=== PATIENT | female | born 1985 | race Caucasian/White ===

== ENCOUNTER 2018-08-28 06:40 | Day surgery (SDC) | payer MEDICAID ==
[2018-08-25 12:39] LABS: BASOPHILS # (AUTO) 0.1 X10'3 (0-0.2); BASOPHILS % (AUTO) 0.9 % (0-1); EOSINOPHILS # (AUTO) 0.1 X10'3 (0-0.9); EOSINOPHILS % (AUTO) 0.8 % (0-6); LYMPHOCYTES % (AUTO) 26.6 % (21-51); MEAN CORPUSCULAR HEMOGLOBIN 29.1 PG (27.0-31.0); MEAN CORPUSCULAR HGB CONC 33.6 g/dL (33.0-36.5); MEAN CORPUSCULAR VOLUME 86.4 FL (78-98); MEAN PLATELET VOLUME 8.2 FL (7.4-10.4); MONOCYTES # (AUTO) 0.5 X10'3 (0-0.9); MONOCYTES % (AUTO) 6.2 % (2-12); NEUTROPHILS % (AUTO) 65.5 % (42-75); PRE OP HEMATOCRIT 39.6 % (35.0-45.0); PRE OP HEMOGLOBIN 13.3 g/dL (12.0-16.0); PRE OP PLATELET COUNT 448 X10'3 (140-440); RED BLOOD COUNT 4.58 X10'6 (4.20-5.60); RED CELL DISTRIBUTION WIDTH 13.8 % (11.5-14.5)
[2018-08-25 12:48] LABS: ALBUMIN 3.2 G/DL (3.4-5.0); ALBUMIN/GLOBULIN RATIO 0.7 (1.1-1.5); ALKALINE PHOSPHATASE 60 IU/L (46-116); BLOOD UREA NITROGEN 7 MG/DL (7-18); BUN/CREATININE RATIO 8.8 (6.6-38.0); CALCIUM 8.8 MG/DL (8.5-10.1); CHLORIDE 104 MMOL/L (99-107); PRE OP ALT 18 U/L (30-65); PRE OP ANION GAP 7 (8-16); PRE OP AST 11 U/L (10-37); PRE OP BILIRUB, TOTAL 0.1 MG/DL (0.0-1.0); PRE OP GLUCOSE 88 MG/DL (70-104); PRE OP POTASSIUM 3.7 MMOL/L (3.4-5.1); PRE OP SODIUM 140 MMOL/L (135-145); TOTAL PROTEIN 7.5 G/DL (6.4-8.2); eGFR 82 ML/MIN
[2018-08-25 12:54] LABS: CLARITY,URINE CLOUDY (Clear); COLOR,URINE YELLOW (Yellow); GLUCOSE, URINE NEGATIVE (Neg); KETONES,URINE TRACE mg/dl (Neg); LEUKOCYTE ESTERASE ,URINE NEGATIVE (Neg); NITRITES, URINE NEGATIVE (Neg); OCCULT BLOOD,URINE NEGATIVE (Neg); PROTEIN,URINE TRACE mg/dl (Neg); UROBILINOGEN,URINE 0.2 E.U/dL (0.2-1.0)
[2018-08-25 13:03] LABS: HCG SERUM QL NEGATIVE
[2018-08-25 13:14] LABS: UA COLLECTION TYPE CLN CATCH MIDSTREAM
[2018-08-25 13:18] LABS: BACTERIA,URINE FEW /HPF (Neg); MUCUS STRANDS MANY /LPF (Neg); RBC,URINE 0-2 /HPF (0-2); SQUAMOUS EPITHELIAL CELL,UR MANY /LPF (FEW); WBC,URINE 0-4 /HPF (0-4)
[~2018-08-28] VITALS: Ht 162.6 cm; Wt 67.8 kg
[2018-08-28] VITALS (19 sets, daily range): BP systolic 115–141; BP diastolic 72–90
[~2018-08-28 06:40] MED LIST: CETI-102 PO; MONT10TA24 PO; NORG1TAB12 PO; cefotetan 2gm/isosm dext IVPB 50 ML IV ONE; famotidine 20mg tablet PO ONE; ringers solution, lacted 1,000 ML IV SCH
[2018-08-28] MEDS ORDERED: LIDOcaine 1% (10mg/ml) 2ml vial ONE (07:25)
[2018-08-28] MEDS ORDERED: ringers solution, lacted 1,000 ML IV SCH (07:44)
[2018-08-28] MEDS ORDERED: proCHLORperazine 10 MG/2 ml inj IV PRN (07:45)
[2018-08-28] MEDS ORDERED: meperidine/PF 25mg/ml syringe IV PRN ×3 (07:45)
[2018-08-28] MEDS ORDERED: morphine 4 MG/ML inj SYRINge IV PRN ×2 (07:45)
[2018-08-28] MEDS ORDERED: ondansetron/PF 4mg/2ml inj IV PRN ×2 (07:45→10:20)
[2018-08-28] MEDS ORDERED: clindamycin phosphate 40gm vag cream ONE (08:30)
[2018-08-28] MEDS ORDERED: BUPIVAcaine/PF 2.5mg/ml (0.25%) 10ml vial ONE ×2 (08:31→08:33)
[2018-08-28] MEDS ORDERED: neomy sulf/polymyxin B sulf. GU irrigation 1ml amp IR ONE (08:31)
[2018-08-28] MEDS ORDERED: epiNEPHrine 1 mg/ml inj ONE (08:32)
[2018-08-28] MEDS ORDERED: vasoPRESSIN 20 units/ml inj. ONE (08:32)
[2018-08-28] MEDS ORDERED: midazolam 2 mg/2 ml injection ONE (08:42)
[2018-08-28] MEDS ORDERED: fentaNYL /PF 50mcg/ml 5ml ampule ONE (08:42)
[2018-08-28] MEDS ORDERED: rocuronium 10mg/ml inj IV ONE (08:43)
[2018-08-28] MEDS ORDERED: propofol inj 20 ML IV ONE (08:43)
[2018-08-28] MEDS ORDERED: LIDOcaine 2% (20mg/ml) 5ml vial ONE (08:43)
[2018-08-28] MEDS ORDERED: dexamethasone sod phosphate 10mg/ml inj ONE (08:52)
[2018-08-28] MEDS ORDERED: glycopyrrolate 0.2mg/ml inj ONE (08:52)
[2018-08-28] MEDS ORDERED: neostigmine methylsulfate 1 MG/ML 10ml vial ONE (08:52)
[2018-08-28] MEDS ORDERED: sevoflurane 250ml liquid IH ONE (08:52)
[2018-08-28] MEDS ORDERED: ondansetron/PF 4mg/2ml inj ONE (10:15)
[2018-08-28] MEDS ORDERED: ketorolac trometh. 30mg/ml inj. ONE (10:15)
[2018-08-28] MEDS ORDERED: ketorolac trometh. 30mg/ml inj. IV PRN (10:20)
[2018-08-28] MEDS ORDERED: normal saline 500ml IV soln 500 ML IV PRN (10:20)
[2018-08-28] MEDS ORDERED: temazepam 15mg capsule PO PRN (10:20)
[2018-08-28] MEDS ORDERED: LORazepam 2 mg/ml vial IV PRN (10:20)
[2018-08-28] MEDS ORDERED: magnesium hydroxide 30ml (MOM) UD suspension PO PRN (10:20)
[2018-08-28] MEDS ORDERED: HYDROcodone/acetaminophen 10/325mg tab PO PRN (10:20)
[2018-08-28] MEDS ORDERED: diphenhydrAMINE 50 mg/ml inj IV PRN (10:20)
[2018-08-28] MEDS ORDERED: metoclopramide 5 mg/ml inj IV PRN (10:20)
--- NOTE | 2018-08-28 10:34 | NUR ---
Received from OR via BED, accompanied by Anesthesiologist DR MCDONOUGH and report given by Anesthesiologist. PT AWAKE, DENIES PAIN, 2 SMALL LAP SITES BILAT GROIN SITES W/DERMABOND CDI. JAMILA PAD IN PLACE CDI. Addendum: 08/28/18 at 1056 by Anupama Russ RN Amended: Links added.
--- NOTE | 2018-08-28 11:50 | NUR ---
I have received report from JULIAN Altman and had the opportunity to ask questions and assume patient care.
--- NOTE | 2018-08-28 12:04 | NUR ---
Report called to receiving nurse. Transferred via BED, 1 BAG Belongings SENT W/PT TO ROOM 350A, RECEIVNG RN AND AIDE AT BEDSIDE TO RECEIVE PT, BLL, CALL LIGHT GIVEN, SIDE RAILS UP X 2, PTS MOTHER AT BEDSIDE. Special Issues communicated to receiving nurse. YES. Addendum: 08/28/18 at 1213 by Anupama Russ RN Amended: Links added.
[2018-08-28] MEDS: simethicone 80mg chew tab PO SCH ×2 (13:34→21:06)
[2018-08-28] MEDS: ringers solution, lacted 1,000 ML IV SCH ×2 (13:44→21:03)
--- NOTE | 2018-08-28 18:53 | NUR ---
Problems reprioritized. Patient report given, questions answered & plan of care reviewed with JULIAN Jiang.
[2018-08-28] MEDS: docusate sod 100mg capsule PO SCH (21:06)
[2018-08-28] MEDS: HYDROcodone/acetaminophen 10/325mg tab PO PRN (21:07)
[2018-08-29] VITALS: BP 115/74
[2018-08-29] MEDS: ringers solution, lacted 1,000 ML IV SCH ×2 (02:20→10:20)
[2018-08-29] MEDS: HYDROcodone/acetaminophen 10/325mg tab PO PRN ×2 (03:18→10:08)
--- NOTE | 2018-08-29 03:20 | NUR ---
Ibanez Catheter has been causing pt an increase in pain and irritation, she would like it out. Pt has been up and walking, passing gas and tolerating a regular diet. Ibanez was taken out at this time with 7ml taken out of f/c balloon, Pt tolerated d/c well and stated that it feels much better without it. Addendum: 08/29/18 at 0354 by Deidre Aguirre RN Amended: Links added.
[2018-08-29 05:35] LABS: ALBUMIN 2.8 G/DL (3.4-5.0); ANION GAP 8 (8-16); BLOOD UREA NITROGEN 6 MG/DL (7-18); BUN/CREATININE RATIO 6.3 (6.6-38.0); CALCIUM 8.7 MG/DL (8.5-10.1); CHLORIDE 104 MMOL/L (99-107); CREATININE 0.95 MG/DL (0.40-0.90); GLUCOSE 144 MG/DL (70-104); POTASSIUM 3.4 MMOL/L (3.5-5.1); SODIUM 139 MMOL/L (135-145); TOTAL CARBON DIOXIDE 27.4 MMOL/L (24-32); eGFR 67 ML/MIN
[2018-08-29 05:52] LABS: BASOPHILS # (AUTO) 0.1 X10'3 (0-0.2); BASOPHILS % (AUTO) 0.4 % (0-1); EOSINOPHILS % (AUTO) 0 % (0-6); HEMATOCRIT 36.3 % (35.0-45.0); HEMOGLOBIN 12.1 g/dl (12.0-16.0); LYMPHOCYTES % (AUTO) 4.9 % (21-51); MEAN CORPUSCULAR HEMOGLOBIN 28.7 PG (27.0-31.0); MEAN CORPUSCULAR HGB CONC 33.2 g/dL (33.0-36.5); MEAN CORPUSCULAR VOLUME 86.6 FL (78-98); MEAN PLATELET VOLUME 8.3 FL (7.4-10.4); MONOCYTES # (AUTO) 0.7 X10'3 (0-0.9); MONOCYTES % (AUTO) 3.3 % (2-12); NEUTROPHILS # (AUTO) 18.7 X10'3 (1.8-7.7); NEUTROPHILS % (AUTO) 91.4 % (42-75); PLATELET COUNT 417 X10'3 (140-440); RED BLOOD COUNT 4.19 X10'6 (4.20-5.60); RED CELL DISTRIBUTION WIDTH 13.9 % (11.5-14.5); WHITE BLOOD COUNT 20.4 X10'3 (4.5-11.0)
--- NOTE | 2018-08-29 06:08 | NUR ---
Patient in room [facility]. I have received report from JULIAN Jiang and had the opportunity to ask questions and assume patient care.
--- NOTE | 2018-08-29 06:22 | NUR ---
Problems reprioritized. Patient report given, questions answered & plan of care reviewed with Kyleigh JORDAN. Addendum: 08/29/18 at 0622 by Deidre Aguirre RN Amended: Links added.
[2018-08-29 07:30] VITALS: BP 125/75
[2018-08-29] MEDS ORDERED: enoxaparin 40mg/0.4ml syringe SQ SCH (08:00)
[2018-08-29] MEDS: simethicone 80mg chew tab PO SCH ×2 (10:08→13:35)
[2018-08-29] MEDS: docusate sod 100mg capsule PO SCH (10:08)
[2018-08-29 12:00] VITALS: BP 126/79
--- NOTE | 2018-08-29 14:00 | NUR ---
Pt discharged to home with all belongings in private vehicle. Discharge instructions reviewed, medications reviewed, and pt instructed to follow up with scheduled post-op appointment. IV DC'd, cannula intact.
== END 2018-08-29 13:46 | disposition home or self-care (01) ==
LOC: PAS 06:40 → SUR 3N 12:06 → PAS 08-29 13:46
PROVIDERS: ATTEND Obstetrics & Gynecology Obstetrics
DX: D25.9 Leiomyoma of uterus, unspecified (principal); K66.8 Other specified disorders of peritoneum; M19.90 Unspecified osteoarthritis, unspecified site; G43.909 Migraine, unspecified, not intractable, without status migrainosus; Z79.899 Other long term (current) drug therapy; Z88.6 Allergy status to analgesic agent; Z87.891 Personal history of nicotine dependence
CPT/HCPCS: 36415; 58552; 58662; 71046; 80048; 80053; 81001; 82948; 84703; 85025; 86885; 86900; 86901; 93005; J0171; J1100; J1885; J2001; J2175; J2250; J2405; J2704; J2710; J3010; J3490; J7120; A4315; A7000; G0378; J1650; J7030